=== PATIENT | female | born 1995 | race Caucasian/White ===

== ENCOUNTER → 2018-12-19 14:53 | Emergency (ER) | payer BC ==
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
[2018-12-19 17:26] VITALS: BP 110/70
[2018-12-23 11:11] LABS: Hepatitis B Surface Antigen Nonreactive (Nonreactive)
[2018-12-23 11:35] LABS: Hepatitis C Antibody Nonreactive (Nonreactive)
[2018-12-23 13:40] LABS: Hepatitis B Surface AB Not Immune (Immune)
== END | disposition home or self-care (01) ==
LOC: ED 14:53
DX: Z77.21 Contact with and (suspected) exposure to potentially hazardous body fluids (principal)
CPT/HCPCS: 36415; 86703; 86706; 86803; 87340; 99281

== ENCOUNTER 2019-07-03 16:50 | Emergency (ER) | payer BC ==
[2019-07-03 17:01] VITALS: BP 115/72
--- NOTE | 2019-07-03 17:29 | UC ---
Laceration HPI - HPI Summary HPI Summary: 24 year old female no PMH, up to date on tetanus, presents with cut to right thumb after using sprilizer at home. + bleeding, controlled with cotton ball, gauze. no difficulty with wound healing, no sensation changes. no prior sutures/ stitching. no FB potential. - History Of Current Complaint Chief Complaint: UCLaceration Stated Complaint: FINGER LACERATION Time Seen by Provider: 07/03/19 17:16 Hx Obtained From: Patient Hx Last Menstrual Period: [id number] Mechanism Of Injury: Sharp Trauma - spirilizer, kitchen utensil Severity: Mild Pain Intensity: 3 Pain Scale Used: 0-10 Numeric Aggravating Factors: Nothing - Allergies/Home Medications Allergies/Adverse Reactions: Allergies Allergy/AdvReac Type Severity Reaction Status Date / Time No Known Allergies Allergy Verified 12/19/18 15:00 Home Medications: Home Medications Levonorgestrel (Iud) [Mirena IUD] 20 mcg IU ONCE 07/03/19 [History Confirmed 04/13] PMH/Surg Hx/FS Hx/Imm Hx Previously Healthy: Yes - Surgical History Surgical History: None - Family History Known Family History: Positive: Non-Contributory - Social History Occupation: Student Alcohol Use: Weekly Substance Use Type: Marijuana Smoking Status (MU): Never Smoked Tobacco Have You Smoked in the Last Year: No - Immunization History Hx Tetanus, Diphtheria Vaccination: Yes - up to date Review of Systems All Other Systems Reviewed And Are Negative: Yes Constitutional: Positive: Negative Skin: Positive: Other - laceration right thumb Musculoskeletal: Negative: Arthralgia, Decreased ROM, Edema, Myalgia Is Patient Immunocompromised?: No Physical Exam Triage Information Reviewed: Yes Appearance: Well-Appearing, No Pain Distress, Well-Nourished Vital Signs: Initial Vital Signs Temp 97.7 F 07/03/19 16:57 Pulse 75 07/03/19 16:57 Resp 16 07/03/19 16:57 BP 115/72 07/03/19 16:57 Pulse Ox 100 07/03/19 16:57 Vital Signs Reviewed: Yes Eyes: Positive: Conjunctiva Clear ENT: Positive: Hearing grossly normal Musculoskeletal: Positive: Strength Intact, ROM Intact. Negative: Edema @ Neurological Exam: Normal Neurological: Positive: Other: - SITLT right hand Psychological Exam: Normal Skin: Positive: Other - avulsion to distal 1/3, lateral aspect of right thumb nail, no edges to approximate. rad/ ulnar pulses 2+, full ROM of thumb, wrist without pain. bleeding controlled with pressure. Occlusive pressur dressing placed. Laceration Course/Dx - Course/Dx Course Of Treatment: avulsion injury, right DIP thumb involving nail - Dressing changes twice daily as shown- first 2 days with xeroform gauze, then vaseline gauze covered with non-stick dressing, gauze, and rangel/ bandage/ koban dressing -Follow up with Gwendolyn within 2-3 days for re-evaluation - Keep elevated, ice/ motrin as needed for pain/ throbbing - No soaking/ submerging wound, keep covered and dry, OK to wash with mild soap , pat dry. - Differential Dx - Laceration/Wound Differental Diagnoses: Hematoma, Joint Infection, Laceration, Tenosynovitis - Diagnosis Provider Diagnosis: Avulsion of skin of right thumb Discharge ED - Sign-Out/Discharge Documenting (check all that apply): Patient Departure All imaging exams completed and their final reports reviewed: No Studies - Discharge Plan Condition: Good Disposition: HOME Patient Education Materials: Laceration (ED) Referrals: No Primary Care Phys,[facility]OPCP [Primary Care Provider] - [facility] [Outside] - 3 Days (Follow up in 2-3 days for re-evaluation. If increased redness, drainage, increased pain, numbness, tingling go sooner or go to ER/ Urgent care ) Additional Instructions: - Dressing changes twice daily as shown- first 2 days with xeroform gauze, then vaseline gauze covered with non-stick dressing, gauze, and rangel/ bandage/ koban dressing -Follow up with Gwendolyn within 2-3 days for re-evaluation - Keep elevated, ice/ motrin as needed for pain/ throbbing - No soaking/ submerging wound, keep covered and dry, OK to wash with mild soap , pat dry. - Billing Disposition and Condition Condition: GOOD Disposition: Home
== END 2019-07-03 18:10 | disposition home or self-care (01) ==
LOC: UCEAST 16:50
DX: S61.011A Laceration without foreign body of right thumb without damage to nail, initial encounter (principal); W26.8XXA Contact with other sharp object(s), not elsewhere classified, initial encounter; Y92.009 Unspecified place in unspecified non-institutional (private) residence as the place of occurrence of the external cause
CPT/HCPCS: 99212; G0463